=== PATIENT | female | born 2005 | race African-American/Black ===

== ENCOUNTER 2025-02-11 23:55 | Emergency (ER) | payer SELFPAY ==
[~2025-02-11] VITALS: Ht 165.1 cm; Wt 66.0 kg
[2025-02-12 00:02] VITALS: O2SAT 99
[2025-02-12 00:41] LABS: BASOPHILS % 0.7 % (0.0-2.0); EOSINOPHILS % 0.5 % (0.0-5.0); HEMATOCRIT. 41.2 % (36.0-48.0); HEMOGLOBIN. 14.1 g/dL (12.0-16.0); LYMPHOCYTES % 10.8 % (20.0-50.0); MEAN CORPUSCULAR HGB CONC 34.1 g/dL (31.0-37.0); MEAN CORPUSCULAR VOLUME 90.7 fL (81.0-99.0); MEAN PLATELET VOLUME 7.9 fl (7.4-10.4); MONOCYTES % 12.4 % (2.0-8.0); NEUTROPHILS % 75.6 % (40.0-76.0); PLATELET 320 x1000/uL (130-400); RED BLOOD CELL COUNT 4.54 mill/uL (4.2-5.4); RED CELL DISTRIBUTION WIDTH 13.2 % (11.6-14.6); WHITE BLOOD COUNT 11.8 x1000/uL (4.5-11.0)
[2025-02-12 00:50] LABS: CHLORIDE 105 mEq/L (98-107); POTASSIUM 3.5 mEq/L (3.5-5.1); SODIUM 136 mEq/L (136-145)
[2025-02-12 00:51] LABS: CALCIUM 9.9 mg/dL (8.7-10.4); CARBON DIOXIDE 23 mEq/L (21-32)
[2025-02-12 00:56] LABS: CREATININE 0.8 mg/dL (0.6-1.0); GLUCOSE 103 mg/dL (70-105); UREA NITROGEN BLOOD 10 mg/dL (9-23)
[2025-02-12] MEDS: ACETAMINOPHEN 325MG TABLET PO ONE (01:06)
[2025-02-12 01:10] LABS: B-HCG QUANTITATIVE 47484 mIU/mL (<6)
[2025-02-12] MEDS: SODIUM CHLORIDE 0.9% 1,000 ML IV ONE (01:30)
[2025-02-12 01:46] LABS: CLARITY URINE CLOUDY (CLEAR); COLOR URINE YELLOW (YELLOW); GLUCOSE URINE NEGATIVE (NEGATIVE); KETONES URINE TRACE (NEGATIVE); LEUKOCYTE ESTERASE URINE NEGATIVE (NEGATIVE); NITRITE URINE POSITIVE (NEGATIVE); OCCULT BLOOD URINE TRACE (NEGATIVE); PH URINE 6.5 (4.5-8.0); PROTEIN URINE TRACE (NEGATIVE); SPECIFIC GRAVITY URINE 1.024 (1.005-1.030); UROBILINOGEN URINE 0.2 E.U./dL (0.2-1.0)
[2025-02-12 01:57] LABS: *AMPHETAMINES SCREEN URINE NEGATIVE (NEGATIVE); *BARBITURATES SCREEN URINE NEGATIVE (NEGATIVE); *BENZODIAZEPINES SCREEN URINE NEGATIVE (NEGATIVE); *COCAINE SCREEN URINE NEGATIVE (NEGATIVE); CANNABINOID URINE SCREEN PRESUMPTIVE POSITIVE (NEGATIVE); METHADONE URINE SCREEN NEGATIVE (NEGATIVE); OPIATES URINE SCREEN NEGATIVE (NEGATIVE); PHENCYCLIDINE URINE SCREEN NEGATIVE (NEGATIVE)
[2025-02-12 01:58] LABS: ECSTASY MDMA SCREEN URINE NEGATIVE (NEGATIVE)
[2025-02-12 02:40] LABS: RBC URINE 0-2 /hpf (0-2); SQUAMOUS EPITHELIAL CELL URINE FEW /lpf (RARE/1+); WBC URINE 0-2 /hpf (0-2)
[2025-02-12 02:41] LABS: BACTERIA URINE 2+
[2025-02-12] MEDS ORDERED: ACET-2708 MT (02:42)
[2025-02-12] MEDS ORDERED: CEPH500C2 MT (02:42)
[2025-02-12] MEDS: CEPHALEXIN 250MG CAPSULE PO ONE (03:14)
[2025-02-12 03:22] VITALS: BP 138/69; PULSE 104; RESP 13; TEMP 36.7; O2SAT 99
== END 2025-02-12 03:31 | disposition home or self-care (01) ==
LOC: ER 02-12 00:06
DX: O23.41 Unspecified infection of urinary tract in pregnancy, first trimester (principal); O26.891 Other specified pregnancy related conditions, first trimester; R10.32 Left lower quadrant pain; N89.8 Other specified noninflammatory disorders of vagina; Z3A.01 Less than 8 weeks gestation of pregnancy
CPT/HCPCS: 99284; 96360; 76801; 96361; 80305; 80048; 84702; 85025; 86850; 86900; 86901; 36415; 81003; J7030